=== PATIENT | female | born 1980 | race African-American/Black ===

== ENCOUNTER 2022-06-17 00:38 | Day surgery (SDC) | payer OTHER, SELFPAY ==
[2022-06-14 09:06] VITALS: BMI 47.9
--- NOTE | 2022-06-14 09:12 | PC.NURSE ---
Report to the Outpatient Waiting Room, entrance under the green pavilion located off [facility], at time 0900 on date 06/17/22. Planned Procedure Time: 1100. Time changes happen often and if your time is changed the preop area will call you the afternoon before. - You and your visitor will be asked to self-screen and do not enter if you have any COVID symptoms. - Only one visitor is requested with a max of two and NO children visitors are allowed at this time. - The patient visitor may be requested to leave or wait in car when not with patient due to distancing restrictions. - A mask is optional within the hospital at this time. Patients may have clear liquids (water, carbonated beverages, clear teas, apple juice) until 3 hours prior to surgery with a maximum of 20 ounces. - No food from midnight until time of surgery Take the following medications with a SIP of water the morning of surgery: N/A DO NOT STOP ANY OF YOUR OTHER PRESCRIPTION MEDICATIONS PRIOR TO SURGERY EXCEPT THE FOLLOWING Medications to discontinue per physician: VITAMINS Date to take last dose: 06/13/22 Please no make-up, nail dutch, hairspray, perfume, deodorant, or body powder the day of surgery. No jewelry (including any body piercings) or valuables the day of surgery, leave them at home. Please take a shower or bath the night before, or the morning of, surgery with an antibacterial soap. Wear comfortable, loose fitting clothing. - Jewelry must be removed prior to entering the operating room. Rings and piercings that are not removed may be cut off. - The hospital will not accept responsibility for valuables. - Please leave all valuables, including medications, at home the day of surgery. If you are going home after surgery, a licensed telephone directory distributor driver must drive you home. - NO public transportation without another adult if you receive anesthesia. - We recommend that an adult stay with you for 24 hours following discharge. - We also recommend that you do not drive, make important decision, drink alcoholic beverages, or take any drugs that were not prescribed by your health care provider for at least 24 hours after your discharge time. Follow any additional instructions given to you from your surgeon. If you or anyone in your household have experienced Covid symptoms in the past week, please notify your surgeon or the nurse liaison at the phone number below for possible testing. Telephone instructions given to PT - ASHLEY DOZIER and asked if any additional questions and then verbalized understanding. Patient advised to call surgeon office or pre surgery nurse liaison [phone] if any additional questions.
[2022-06-17] MEDS: ACETAMINOPHEN 500 MG TABLET 1000 MG PO (07:01)
[2022-06-17 07:15] VITALS: BP 135/74; PULSE 93; RESP 18; TEMP 36.4; O2SAT 100
--- NOTE | 2022-06-17 07:25 | WPDHPUPDATE1 ---
History and Physical Update Update Date/Time: 06/17/22 07:25 History and Physical has been reviewed, including an updated exam of the patient. There are NO changes in the patient's condition. Risks, benefits, and alternatives have been discussed and questions answered. Patient agrees to proceed with procedure.
--- NOTE | 2022-06-17 07:25 | PM.HPGS ---
History of Present Illness History of Present Illness Consent: Risks, benefits, and alternatives have been discussed and questions answered. Patient agrees to proceed with procedure. Chief complaint: Menorrhagia Anemia Narrative: Gudelia Razo is a 41 year old female with menorrhagia and anemia. The patient presented as a new patient to our office June 13, 2022.Most recent hemoglobin May 28 was 7.9. Patient states bleeding has been heavy for the years. Patient has had abnormal bleeding since she was a teenager. Patient did have a D&C in 2012 and was diagnosed with polyps. Patient also was diagnosed with polycystic ovarian syndrome. Patient has a history of thrombocytopenia however most recent platelets are 473. It was recommended to proceed with D&C hysteroscopy. Risks of infection, bleeding, perforation, fluid imbalance are reviewed. Possible pathology was also discussed. Patient voices understanding and agrees to proceed. Review of Systems Constitutional: Constitutional: Reports headache(s) Cardiovascular: Cardiovascular: Reports dyspnea Musculoskeletal: Musculoskeletal: Reports back pain and Reports arthralgias Psychiatric: Psychiatric: Reports anxiety PMFSH Past Medical History Medical History (Updated 06/17/22 @ 07:31 by Staci Granger MD) Anxiety History of thrombocytopenia Polycystic ovarian syndrome PTSD (post-traumatic stress disorder) Surgical History Surgical History (Updated 06/17/22 @ 07:30 by Staci Granger MD) History of hysteroscopy Social History Social History Smoking status: Never smoker Alcohol intake: current Drinks per week: 1 Substance use: never Substance use type: does not use Living arrangements: with family Spiritual care concerns: No Meds Home Medications and Allergies Home Medications Medication Instructions Recorded Confirmed Type ergocalciferol (vitamin D2) 1,250 1,250 mcg PO WEEKLY 06/14/22 06/14/22 History mcg (50,000 unit) capsule vitamin B complex (B 1 tablet PO DAILY 06/14/22 06/14/22 History Complex-Vitamin B12 tablet) Allergies Allergy/AdvReac Type Severity Reaction Status Date / Time No Known Allergies Allergy Verified 06/17/22 07:00 Vital Signs Vital Signs - 24 hr 06/17/22 07:15 Temperature 97.6 F Pulse Rate 93 Respiratory Rate 18 Blood Pressure 135/74 Pulse Oximetry 100 Oxygen Delivery Room Air Exam Const: General: obese ( BMI of 47.3) Orientation/consciousness: patient oriented x3 Resp: Effort & Inspection: normal respiratory effort Auscultation: clear to auscultation bilaterally Cardio: Rate: regular rate Rhythm: regular rhythm GI: GI Palp: Yes Soft to palpation, No Tenderness to palpation present (GI) and No Palpable mass present : External Female Exam: normal external appearance Speculum Exam - Vagina: normal appearance of the vagina and normal vaginal discharge Speculum Exam - Cervix: normal appearance of the cervix Bimanual exam- vagina & uterus: uterine size normal and consistency normal Bimanual Exam- Adnexa, other: normal adnexae and No adnexal tenderness Neuro: General: patient oriented x3 Assessment and Plan Assessment and plan (1) Menorrhagia: Code(s): N92.0 - Excessive and frequent menstruation with regular cycle Status: Acute Assessment and Plan: plan to proceed with D&C hysteroscopy (2) Anemia: Code(s): D64.9 - Anemia, unspecified Status: Acute
[2022-06-17] MEDS: LACTATED RINGERS 1,000 ML 30 ML IV CONT (07:28)
--- NOTE | 2022-06-17 08:14 | WPDANESEPPF ---
Anes - Initial Pre Proc Eval Procedure: Operation Date: 06/17/22 09:00 Proposed Procedures p Hysteroscopy Dilation and Curettage - Staci Granger MD Date/Time: 06/17/22 08:14 Surgeon: Staci Granger MD Pre Op Diagnosis: Menorrhagia Anemia Patient Data Age: 41 Gender: F Height: 1.63 m Weight: 126 kg Last Vital Signs Temp 97.6 F 06/17/22 07:15 Pulse 93 06/17/22 07:15 Resp 18 06/17/22 07:15 BP 135/74 06/17/22 07:15 Pulse Ox 100 06/17/22 07:15 O2 Del Method Room Air 06/17/22 07:15 Allergies Allergy/AdvReac Type Severity Reaction Status Date / Time No Known Allergies Allergy Verified 06/17/22 07:00 Home Medications Medication Instructions Recorded Confirmed Type ergocalciferol (vitamin D2) 1,250 1,250 mcg PO WEEKLY 06/14/22 06/14/22 History mcg (50,000 unit) capsule vitamin B complex (B 1 tablet PO DAILY 06/14/22 06/14/22 History Complex-Vitamin B12 tablet) Patient hx anesthesia problems: none Family hx anesthesia problems: none Results Review: All pre-operative results and documents have been reviewed as part of the pre-operative evaluation. FORMERLY [facility], [facility] Past Medical History Medical History (Updated 06/17/22 @ 07:31 by Staci Granger MD) Anxiety History of thrombocytopenia Polycystic ovarian syndrome PTSD (post-traumatic stress disorder) Surgical History Surgical History (Updated 06/17/22 @ 07:30 by Staci Granger MD) History of hysteroscopy Social History Social History Smoking status: Never smoker Alcohol intake: current Drinks per week: 1 Substance use: never Substance use type: does not use Living arrangements: with family Spiritual care concerns: No Anes - Eval Final PreProcedure Day of Procedure 06/17/22 08:14 Patient weight: morbidly obese Heart: regular rate and rhythm Lungs: clear to auscultation Airway: Mallampati scale class III Neurological: alert and oriented Last oral intake: >/= 8 hours ASA classification: III Emergent: no Anesthetic plan: proceed Anesthesia type and monitoring: general GIVS (may use LMA if needed) and standard monitoring Results Review: All pre-operative results and documents have been reviewed as part of the pre-operative evaluation. Informed Consent: The patient's anesthetic plan and its attendant risks and benefits were discussed with the patient/family/POA. Questions were solicited and answers provided to the satisfaction of the patient/family/POA.
[2022-06-17] MEDS: LIDOCAINE HCL 1% LOCAL INJ 20 ML VIAL 10 ML INFILTRATE (08:42)
--- NOTE | 2022-06-17 08:57 | W.PM.PROC2 ---
Procedure Note - Detailed Date of Procedure 06/17/22 Pre-op Diagnosis Menorrhagia with anemia Post-op Diagnosis Same Procedure Performed D&C hysteroscopy Surgeon Staci Granger MD Anesthesia MAC and Local Findings uterus sounds to 8cm; the anterior wall is very thickened and the left wall is also somewhat thickened; calcifications noted at the fundus Description of Procedure The patient is taken to the operating room and placed under anesthesia in the dorsal lithotomy position. She was prepped and draped in the usual sterile fashion. Breeding speculum was placed in the vagina and the cervix grasped on the anterior lip with a tenaculum. The uterus is sounded to 8cm. The hysteroscope was placed with the above-stated findings. The Aveta resection blade is placed and under direct visualization the thickened anterior wall and left wall are resected. The hysteroscope was then removed and the sharp curette used to curette the endometrium until a good uterine cry was noted in all areas. All instruments were then removed. Sponge, needle, and instrument counts are correct per the OR staff. Patient is awakened from anesthesia and taken to recovery in stable condition. Estimated Blood Loss 5 Drains No Packing No Pathology Yes ( Endometrial shavings and curettings) Complications No immediate complications Condition Stable Disposition PACU
[2022-06-17 09:00] VITALS: BP 115/69; PULSE 87; RESP 12; O2SAT 100
[2022-06-17 09:30] VITALS: BP 111/69; PULSE 77
[2022-06-17] MEDS: oxyCODONE HCL (*CRX) 5 MG TAB IR PO (09:41)
[2022-06-17 10:00] VITALS: BP 118/74; PULSE 67
== END 2022-06-17 10:13 | disposition home or self-care (01) ==
PROVIDERS: PCP Nurse Practitioner Family; Visit Provider Obstetrics & Gynecology Gynecology
PROC: 0U5B8ZZ Destruction of Endometrium, Via Natural or Artificial Opening Endoscopic (ICD-10-PCS; CPT 58563; principal; 2022-06-17 09:00)
DX: N92.0 Excessive and frequent menstruation with regular cycle (principal); D64.9 Anemia, unspecified; E66.01 Morbid (severe) obesity due to excess calories; Z68.42 Body mass index [BMI] 45.0-49.9, adult
CPT/HCPCS: 58558; 88305; A9270; J2250; J2704; J3010; J7120

== ENCOUNTER 2022-06-18 16:00 | Outpatient (CLI) | payer OTHER, SELFPAY ==
--- NOTE | ~2022-06-18 | US_ITS ---
EXAMINATION: US pelvic complete w TV DATE: 06/18/2022 16:46 INDICATION: Abnormal uterine bleeding. TECHNIQUE: Multiple transabdominal and transvaginal sonographic images of the pelvis were obtained. COMPARISON: None. FINDINGS: TRANSABDOMINAL ULTRASOUND: The uterus measures 7.0 x 4.2 x 4.7 cm. There is no free fluid in the pelvis. TRANSVAGINAL ULTRASOUND: The endometrial complex measures 5 mm in thickness. There is a 1.7 cm submucosal fibroid. The right o vary measures 2.4 x 1.9 x 2.4 centers. The left ovary measures 2.3 x 1.6 x 1.3 cm. There is normal va scular flow in the ovaries. IMPRESSION: 1. Submucosal fibroid. Reviewed, dictated and finalized at location [facility] IMPRESSION: 1. Submucosal fibroid.
== END 2022-06-18 16:01 | disposition home or self-care (01) ==
PROVIDERS: PCP Nurse Practitioner Family; Visit Provider Advanced Practice Midwife
DX: N93.9 Abnormal uterine and vaginal bleeding, unspecified (principal)
CPT/HCPCS: 76830; 76856

== ENCOUNTER 2022-07-11 01:06 | Day surgery (SDC) | payer OTHER, SELFPAY ==
[2022-07-04 12:26] VITALS: BMI 46.3
--- NOTE | 2022-07-10 14:18 | PM.HPGS ---
History of Present Illness History of Present Illness Consent: Risks, benefits, and alternatives have been discussed and questions answered. Patient agrees to proceed with procedure. Chief complaint: anemia Narrative: Gudelia Razo is a 41 year old female referred for investigation of iron deficiency anemia. She was found have a hemoglobin of 7.9 last month. Review of Systems Review of Systems: All systems reviewed & are unremarkable except as noted in HPI and below PMFSH Past Medical History Medical History Anxiety History of thrombocytopenia Polycystic ovarian syndrome PTSD (post-traumatic stress disorder) Surgical History Surgical History History of hysteroscopy Social History Social History Smoking status: Never smoker Alcohol intake: current Drinks per week: 1 Alcohol use details: 2 drinks monthly Substance use: never Substance use type: does not use Living arrangements: with family Spiritual care concerns: No Meds Home Medications and Allergies Home Medications Medication Instructions Recorded Confirmed Type ergocalciferol (vitamin D2) 1,250 1,250 mcg PO WEEKLY 06/14/22 07/11/22 History mcg (50,000 unit) capsule vitamin B complex (B 1 tablet PO DAILY 06/14/22 07/11/22 History Complex-Vitamin B12 tablet) dulaglutide 0.75 mg/0.5 mL 0.75 mg subcut WEEKLY 07/04/22 07/11/22 History subcutaneous pen injector (Trulicity) metformin 500 mg tablet,extended 500 mg PO DAILY 07/04/22 07/11/22 History release 24 hr Allergies Allergy/AdvReac Type Severity Reaction Status Date / Time No Known Allergies Allergy Verified 07/11/22 08:38 Exam Resp: Auscultation: clear to auscultation bilaterally Cardio: Rate: regular rate Rhythm: regular rhythm GI: GI Palp: Yes Soft to palpation and No Tenderness to palpation present (GI) Assessment and Plan Assessment and plan (1) Anemia: Code(s): D64.9 - Anemia, unspecified Status: Acute Assessment and Plan: Colonoscopy with possible biopsy or polypectomy or cautery or injection of substances.
[2022-07-11 08:40] VITALS: BP 124/74; PULSE 65; RESP 18; TEMP 35.9; O2SAT 100
--- NOTE | 2022-07-11 08:40 | P.PNAN_ITS ---
Anes - Initial Pre Proc Eval Procedure: Operation Date: 07/11/22 10:00 Proposed Procedures p Colonoscopy - Fred Deluca MD Date/Time: 07/11/22 08:40 Surgeon: Fred Deluca MD Pre Op Diagnosis: anemia Patient Data Age: 41 Gender: F Height: 1.63 m Weight: 116.6 kg Allergies Allergy/AdvReac Type Severity Reaction Status Date / Time No Known Allergies Allergy Verified 07/11/22 08:38 Home Medications Medication Instructions Recorded Confirmed Type ergocalciferol (vitamin D2) 1,250 1,250 mcg PO WEEKLY 06/14/22 07/11/22 History mcg (50,000 unit) capsule vitamin B complex (B 1 tablet PO DAILY 06/14/22 07/11/22 History Complex-Vitamin B12 tablet) dulaglutide 0.75 mg/0.5 mL 0.75 mg subcut WEEKLY 07/04/22 07/11/22 History subcutaneous pen injector (Trulicity) metformin 500 mg tablet,extended 500 mg PO DAILY 07/04/22 07/11/22 History release 24 hr Patient hx anesthesia problems: none Family hx anesthesia problems: none Results Review: All pre-operative results and documents have been reviewed as part of the pre- operative evaluation. FORMERLY [facility], [facility] Past Medical History Medical History Anxiety History of thrombocytopenia Polycystic ovarian syndrome PTSD (post-traumatic stress disorder) Surgical History Surgical History History of hysteroscopy Social History Social History Smoking status: Never smoker Alcohol intake: current Drinks per week: 1 Alcohol use details: 2 drinks monthly Substance use: never Substance use type: does not use Living arrangements: with family Spiritual care concerns: No Anes - Eval Final PreProcedure Day of Procedure 07/11/22 08:40 Patient weight: morbidly obese Heart: regular rate and rhythm Lungs: clear to auscultation Airway: Mallampati scale class II Neurological: alert and oriented Last oral intake: >/= 8 hours ASA classification: III Emergent: no Anesthetic plan: proceed Anesthesia type and monitoring: general GIVS and standard monitoring Results Review: All pre-operative results and documents have been reviewed as part of the pre- operative evaluation. Informed Consent: The patient's anesthetic plan and its attendant risks and benefits were discussed with the patient/family/POA. Questions were solicited and answers provided to the satisfaction of the patient/family/POA.
[2022-07-11] MEDS: LACTATED RINGERS 1,000 ML 150 ML IV CONT (08:44)
[2022-07-11 10:14] VITALS: BP 137/72; PULSE 82; RESP 22; O2SAT 97
[2022-07-11 10:24] VITALS: BP 142/77; PULSE 78; RESP 18; O2SAT 100
[2022-07-11 10:34] VITALS: BP 136/73; PULSE 76; RESP 18; O2SAT 100
== END 2022-07-11 10:44 | disposition home or self-care (01) ==
PROVIDERS: PCP Nurse Practitioner Family; Visit Provider Internal Medicine Gastroenterology
PROC: 0DJD8ZZ Inspection of Lower Intestinal Tract, Via Natural or Artificial Opening Endoscopic (ICD-10-PCS; CPT 45378; principal; 2022-07-11 10:00)
DX: D50.9 Iron deficiency anemia, unspecified (principal); E28.2 Polycystic ovarian syndrome; E66.01 Morbid (severe) obesity due to excess calories; Z68.41 Body mass index [BMI] 40.0-44.9, adult; Z79.899 Other long term (current) drug therapy; Z79.84 Long term (current) use of oral hypoglycemic drugs
CPT/HCPCS: 45378; J2704; J7120

== ENCOUNTER 2023-02-19 10:45 | Outpatient (CLI) | payer OTHER, SELFPAY ==
--- NOTE | 2023-02-19 | ECG_ITS ---
Measurements Intervals [place] Rate: 65 P: 52 GA: 184 QRS: 11 QRSD: 93 T: 24 QT: 430 QTc: 448 Interpretive Statements SINUS RHYTHM NORMAL ECG NO PREVIOUS ECG AVAILABLE FOR COMPARISON Electronically Signed On 02-19-2023 11:33:55 [employer] by Song Ramos D.O.
[2023-02-19 11:51] LABS: Basophils Percent Auto 0.4 % (0.2-1.2); Eosinophils Absolute Auto 0.2 K/mm3 (0-0.3); Eosinophils Percent Auto 1.8 % (0-4.4); Hematocrit 40.1 % (37.0-47.0); Immature Granulocyte Absolute 0.03 K/mm3 (0.00-0.031); Immature Granulocyte Percent A 0.3 % (0-0.5); Lymphocytes Absolute Auto 3.27 K/mm3 (0.9-3.2); Lymphocytes Percent Auto 34.9 % (18.3-44.2); Mean Corpuscular HGB Conc 29.9 g/dl (32-36); Mean Corpuscular Hemoglobin 26.2 pg (26-34); Mean Corpuscular Volume 87.6 fl (80-100); Mean Platelet Volume 10.9 fl (7.4-10.4); Monocytes Absolute Auto 0.6 K/mm3 (0.1-0.6); Monocytes Percent Auto 6.7 % (2.6-8.5); Neutrophils Absolute Auto 5.2 K/mm3 (1.3-6.7); Neutrophils Percent Auto 55.9 % (45.5-73.1); Platelet Count Result 367 k/mm3 (150-375); Red Blood Count 4.58 M/mm3 (4.2-5.4); Red Cell Distribution Width 14.3 % (11.5-14.5); White Blood Count 9.4 K/mm3 (4.5-10.0)
[2023-02-19 12:03] LABS: Partial Thromboplastin Time 31.7 SECONDS (22.3-36.8)
[2023-02-19 12:06] LABS: Alanine Aminotransferase 20 U/L (6-35); Albumin Level 3.8 g/dL (3.5-5.1); Alkaline Phosphatase 124 U/L (38-126); Anion Gap 1 mmol/L (8-16); Aspartate Amino Transferase 28 U/L (14-36); Bilirubin,Total 0.5 mg/dL (0.2-1.3); Blood Urea Nitrogen 16 mg/dL (7-17); Calcium 8.6 mg/dL (8.4-10.2); Carbon Dioxide 32 mmol/L (22-30); Chloride 105 mmol/L (98-107); Cholesterol 184 mg/dL (0-200); Estimated Glomerular Filt Rate > 60; Glucose 90 mg/dL (65-110); HDL Direct 32 mg/dL; Magnesium 2.1 mg/dL (1.6-2.3); Sodium 138 mmol/L (137-145); Triglycerides 56 mg/dL (<150)
[2023-02-19 12:15] LABS: Hemoglobin A1C 4.9 % (<5.7)
[2023-02-19 12:16] LABS: Parathyroid Intact 73.2 pg/mL (7.5-53.5)
[2023-02-19 12:19] LABS: LDL Cholesterol Direct 123 mg/dL
[2023-02-19 12:37] LABS: Vitamin D 25 Hydroxy < 12.8 ng/mL
[2023-02-19 12:38] LABS: Iron 79 ug/dL (37-170)
[2023-02-19 13:12] LABS: Folic Acid 6.2 ng/mL (2.76->20)
[2023-02-23 10:01] LABS: Vitamin B1 8 nmol/L (8-30)
== END 2023-02-19 10:46 | disposition home or self-care (01) ==
PROVIDERS: PCP Nurse Practitioner Family
DX: Z01.818 Encounter for other preprocedural examination (principal); E66.1 Drug-induced obesity; Z68.42 Body mass index [BMI] 45.0-49.9, adult; E55.9 Vitamin D deficiency, unspecified; E53.8 Deficiency of other specified B group vitamins; D50.9 Iron deficiency anemia, unspecified
CPT/HCPCS: 36415; 80053; 80061; 82306; 82607; 82728; 82746; 83036; 83540; 83735; 83970; 84425; 84443; 85025; 85610; 85730; 93005

== ENCOUNTER 2023-04-26 18:16 | Emergency (ER) | payer OTHER, SELFPAY ==
--- NOTE | ~2023-04-26 | XR_ITS ---
AP, oblique, and lateral views of the right fifth toe CLINICAL HISTORY: Injury FINDINGS: Questionable transverse fracture through the fused fifth middle and distal phalanges. No ot her fracture or dislocation seen. Remaining joint spaces are preserved. Soft tissues are unremarkable . Impression: Questionable transverse fracture through the fused fifth middle and distal phalanges. Reviewed, dictated and finalized at location . [employer]ACH[employer]IC Impression: Questionable transverse fracture through the fused fifth middle and distal phal anges.
[2023-04-26 18:19] VITALS: BP 131/94; PULSE 86; RESP 20; TEMP 36.3; O2SAT 100
--- NOTE | 2023-04-26 18:35 | ED.LOWEXIN ---
HPI - Extremity Injury (Lower) General Chief Complaint: Extremity Injury, Lower Stated Complaint: toe injury Time Seen by Provider: 04/26/23 18:23 Source: patient Mode of arrival: ambulatory Limitations: no limitations History of Present Illness HPI Narrative: Patient is a 42 y/o female who presents to the ED with c/o injury to her R 5th toe. Patient reports she was helping her mother move her bedroom furniture when she hit her R5th toe against the bed box spring. States her toe was pointing outward laterally after the injury and she had to move it back into place. C/o pain with walking. No other injuries. No numbness/tingling. Related Data Home Medications Medication Instructions Recorded Confirmed ergocalciferol (vitamin D2) 1,250 1,250 mcg PO WEEKLY 06/14/22 04/26/23 mcg (50,000 unit) capsule vitamin B complex (B 1 tablet PO DAILY 06/14/22 04/26/23 Complex-Vitamin B12 tablet) dulaglutide 0.75 mg/0.5 mL 0.75 mg subcut WEEKLY 07/04/22 04/26/23 subcutaneous pen injector ([facility]) metformin 500 mg tablet,extended 500 mg PO DAILY 07/04/22 04/26/23 release 24 hr Allergies Allergy/AdvReac Type Severity Reaction Status Date / Time No Known Allergies Allergy Verified 07/11/22 08:38 Review of Systems Review of Systems: CONSTITUTIONAL: Denies fever, chills, or sweats. MUSCULOSKELETAL: See HPI. NEUROLOGIC: Denies numbness, or weakness. All systems reviewed & are unremarkable except as noted in HPI and below PMFSH Past Medical History Medical History Anxiety History of thrombocytopenia Polycystic ovarian syndrome PTSD (post-traumatic stress disorder) Surgical History Surgical History History of hysteroscopy Social History Social History Smoking status: Never smoker Alcohol intake: current Drinks per week: 1 Alcohol use details: 2 drinks monthly Substance use: never Substance use type: does not use Living arrangements: with family Spiritual care concerns: No Exam Narrative: GENERAL: Well appearing, morbidly obese with BMI of 47.6, non-toxic, in no acute distress. HEAD: Normocephalic, atraumatic. RESPIRATORY: Airway patent, respirations nonlabored. CARDIOVASCULAR: Regular rate and rhythm. Pedal pulses on R 2+ MUSCULOSKELETAL: Moves all extremities. No gross deformities. TTP over R 5th toe. No significant erythema, swelling, or bruising. Appears in alignment. SKIN: Warm, dry, normal color. NEURO: A&O X3. Speech clear. Cranial nerves II-XII grossly intact. PSYCHIATRIC: Appropriate mood and affect. Normal interaction. Course Vital Signs Vital signs: Vital Signs Temperature 97.3 F L 04/26/23 18:19 Pulse Rate 86 04/26/23 18:19 Respiratory Rate 20 04/26/23 18:19 Blood Pressure 131/94 H 04/26/23 18:19 Pulse Oximetry 100 04/26/23 18:19 Oxygen Delivery Room Air 04/26/23 18:19 Temperature 97.3 F L 04/26/23 18:19 Pulse Rate 86 04/26/23 18:19 Respiratory Rate 20 04/26/23 18:19 Blood Pressure 131/94 H 04/26/23 18:19 Pulse Oximetry 100 04/26/23 18:19 Oxygen Delivery Room Air 04/26/23 18:19 MDM - Extremity Injury (Lower) MDM Narrative Medical decision making narrative: X-ray with questionable fracture. Given injury and reported abnormal alignment, will treat as a fracture. Patient's toes tianna taped. Given post op shoe. Will be information for podiatry for f/u. D/C in stable condition. Patient did not want anything for pain in the ED. Medical Records Attestation: I reviewed the patient's medical records. Imaging Data Attestation: I personally reviewed and interpreted this imaging study as follows: Radiologist's impression: ITS Impressions Toe X-Ray 04/26/23 19:25 Impression: Questionable transverse fracture through the fused fifth mi
--- NOTE | 2023-04-26 19:48 | PC.NURSE ---
tianna tape and post op shoe applied to 4th and 5th toe on right foot.
== END 2023-04-26 19:52 | disposition home or self-care (01) ==
PROVIDERS: Emergency Provider Physician Assistant; PCP Nurse Practitioner Family
DX: S92.521A Displaced fracture of middle phalanx of right lesser toe(s), initial encounter for closed fracture (principal); S92.531A Displaced fracture of distal phalanx of right lesser toe(s), initial encounter for closed fracture; E28.2 Polycystic ovarian syndrome; Z79.85 Long-term (current) use of injectable non-insulin antidiabetic drugs; Z79.84 Long term (current) use of oral hypoglycemic drugs; W22.03XA Walked into furniture, initial encounter
CPT/HCPCS: 73660; 99284